=== PATIENT | female | born 2000 | race Caucasian/White ===

== ENCOUNTER 2023-04-08 18:05 | Emergency (ER) | payer MEDICAID, SELFPAY ==
[2023-04-08 18:07] VITALS: BP 124/72; PULSE 101; RESP 18; TEMP 36.4; O2SAT 99
[2023-04-08] MEDS: 0.9% Normal Saline 1,000 ML 1000 ML IV (18:28)
--- NOTE | 2023-04-08 18:28 | EDS_ITS ---
HPI HPI - GI History of Present Illness Chief Complaint: Nausea/Vomiting Informant: patient Nausea/Vomiting/Emesis GI Symptom: Positive for Nausea and Vomiting Onset: Today and Yesterday Severity: Moderate Diarrhea/Melena/Hematochezia GI Symptom: Negative for Diarrhea, Melena or Hematochezia Associated Symptoms Associated Symptoms: Negative for Dysuria, Frequency or Hematuria Narrative Narrative: 22-year-old female G2, P0 Ab1 with having a miscarriage. Just found out that she was through an urgent care visit. Has had nausea and vomiting yesterday and today. Decreased p.o. intake. Denies any dysuria. No fever. No significant abdominal pain. No vaginal bleeding. No [place] past medical history or prior surgical history. Prior similar symptoms: Yes Recent Illness/Hospitalization: No PFSH PFSH Medical History no medical history no medical history Home Medications NK 04/08/23 [History Last Taken Unknown] Allergy/AdvReac Type Severity Reaction Status Date / Time No Known Allergies Allergy Verified 04/08/23 18:07 Surgical History no surgical history no surgical history Social History (Updated 04/08/23 @ 18:32 by Ekta Flores) household members: significant other ROS ROS ED ROS Narrative Nausea and vomiting. Review of Systems ROS Unobtainable: Denies due to encephalopathy Constitutional Constitutional ED: Denies chills or fever(s) ENT ENT ED: Denies ear pain Cardiovascular Cardiovascular: Denies chest pain Respiratory/Chest Respiratory/Chest: Denies cough or dyspnea Gastrointestinal Gastrointestinal: Reports nausea and vomiting; Denies abdominal pain, constipation, diarrhea or melena Genitourinary Genitourinary ED: Denies dysuria or hematuria Musculoskeletal Musculoskeletal: Denies arthralgias Integumentary Denies abscess Neurologic Neurologic: Denies headache(s) Psychiatric Psychiatric: Denies anxiety or depression Endocrine Endocrinology: Denies polydipsia Hematologic/Lymphatic Hematologic/Lymphatic: Denies easy bleeding Allergic/Immunologic Allergic/Immunologic ED: Denies mouth swelling EXAM Physical Exam Narrative Exam Narrative: [id number] female vital signs are stable afebrile. Does not look septic or toxic. No distress. H EENT exam unremarkable.. Lungs clear. Heart regular rhythm no murmur. Rate about 100. Abdomen soft nondistended normal bowel sounds no peritoneal signs. Right upper right lower quadrant unremarkable. No suprapubic tenderness. Moves all 4 extremities. Nontender no edema. She is awake alert. No focal motor deficits. Benign exam. Const Vital Signs: 04/08/23 18:07 04/08/23 19:31 Temperature 97.6 F L Temperature Source Temporal Pulse Rate 101 H 84 Respiratory Rate 18 16 Blood Pressure 124/72 H 122/70 H Blood Pressure Mean 89 87 Pulse Ox 99 98 Oxygen Delivery Method Room Air Room Air Positive well nourished and well developed; Negative for cachectic, contractures or unkempt General Appearance ED: well developed and NAD; Negative for unkempt, cachectic, contractures or pallor Nutritional Appearance: Negative for cachectic HEENT Reports moist mucous membranes; Denies dry mucous membranes normocephalic and atraumatic; Negative for trauma or tenderness Mouth ED: No dry mucous membranes Mouth: No dry mucous membranes Eyes PERRL and EOMs intact bilaterally General Eye ED: Negative for pale conjunctiva or scleral icterus Neck no lymphadenopathy, supple and no JVD General: Negative for tenderness Carotids: Negative for other Lymph Lymphatic: other Resp normal respiratory effort and clear to auscultation bilaterally Effort and Inspection: Negative for respiratory distress Auscultation: Negative for rales, rhonchi or wheezes Cardio regular rate, regular rhythm, S1 normal heart sound, S2 normal heart sound and no murmurs Rate: Negative for bradycardia or tachycardic Rhythm: Negative for abnormal rhythm GI non-tender, non-distended and no masses Inspection: Negative for abdominal distention Auscultation: normoactive bowel sounds Palpation: soft; Negative for tender, guarding, rigid, hepatomegaly, splenomegaly, hernia, mass, pulsatile mass or rebound tenderness present Back/Spine no CVA tenderness General Back: Negative for CVA tenderness Cervical Spine: Negative for cervical spine tenderness Thoracic Spine / Upper Back: Negative for thoracic spinal tenderness Lumbar Spine / Lower Back: Negative for lumbar spinal tenderness Coccyx: Negative for other Extremity full ROM General Extremety ED: Negative for edema or tenderness General Extremity: Negative for edema Neuro CN's II-XII intact bilaterally and moves all extremities Sensorium / Orientation: alert, oriented to person, oriented to place and oriented to time; Negative for orientation impaired, confused, lethargic or stuporous Motor Exam: strength 5/5 throughout Psych mental status grossly normal and thought process normal Appearance: Negative for unkempt Attitude: No agitated Mood & Affect: Negative for depressed, anxious or tearful Skin no wounds General Skin Exam: Negative for jaundice or pallor Lesions: no lesions Rashes: no rashes Trauma: Negative for abrasion Nails: Negative for discolored MDM MDM MDM Narrative Medical decision making narrative: 22-year-old female first trimester . Last menstrual period was February 17. Denies any pelvic pain or vaginal bleeding. Having nausea and vomiting last 2 days. She will be treated with IV fluids and IV Zofran. I offered her a serum test and she does not want it done at this time. She had a positive urine test done several days ago. Repeat exam patient is doing well at 7:44 PM. Nausea is resolved. Clinically feels well. She has received a liter of fluid. She feels comfortable being discharged home. She has outpatient follow-up scheduled with a local [employer] [facility]. She will be written for prescription of Zofran. History & Record Review Discussion w/independent historian: Patient Lab Data Lab results narrative: Patient did not want any labs. Discharge Plan Triage Chief Complaint: Nausea/Vomiting ED Provider: Alec Funez Dx/Rx/DC Orders Clinical Impression: First trimester , Vomiting Instructions: 1st Trimester, ED Vomiting (Adult) Prescriptions: No Action NK Primary Care Provider: Care Physician,No Primary Referrals: Yareli Snow MD [Med Staff - Active Staff] - Keep Robin appointment Care Physician,No Primary [Primary Care Provider] - Activity Restrictions/Additional Instructions: Zofran as needed for nausea. Plenty fluids and rest. Follow-up with your [employer] appointment. Disposition Disposition: Home, Self Care
[2023-04-08] MEDS: Ondansetron 4 MG/2 ML Vial IV (18:30)
[2023-04-08 18:31] VITALS: BMI 38.8
--- NOTE | 2023-04-08 19:30 | CM.ED ---
Social Work Note Referral Source: case find Referral Reason: no PCP SW met with patient and introduced herself and role as [facility] [employer] T[employer]. Patient lying on hospital bed and agreeable to speak with SW with guest present. SW inquired about patient's insurance and current PCP. Patient verified insurance and reports no current PCP. SW provided patient with a list of local PCPs in network with patient's insurance and accepting new patients. Patient receptive towards list. SW then engaged patient in conversation regarding community resources for new mothers, patient reports knowledge of agencies and declined list of resources. SW remains available if needs arise. Aleisha Clarke RECEIVING [employer]ARN CUSTODIAN, SHAREE
[2023-04-08 19:31] VITALS: BP 122/70; PULSE 84; RESP 16; O2SAT 98
[2023-04-08 19:51] VITALS: RESP 16
== END 2023-04-08 19:51 | disposition home or self-care (01) ==
PROVIDERS: Emergency Provider Emergency Medicine; Visit Provider Emergency Medicine
DX: O21.0 Mild hyperemesis gravidarum (principal); Z3A.00 Weeks of gestation of pregnancy not specified
CPT/HCPCS: 99283; J7030; A4216; J2405